=== PATIENT | female | born 1955 ===

== ENCOUNTER 2017-12-13 06:10 | Day surgery (SDC) | payer OTHER ==
[~2017-12-13 06:10] MED LIST: CLARINEX-D 121 EACH; FOLIC ACID10 GM; PANTOPRAZOLE SO40 M1; TOPROL XL25 MG
[2017-12-13] MEDS ORDERED: NAPROXEN SODIU550 MG PO (09:57)
== END 2017-12-13 11:45 | disposition home or self-care (01) ==
LOC: CIR.AMB 06:10
DX: N84.0 Polyp of corpus uteri (principal)